=== PATIENT | female | born 1935 | race Caucasian/White ===

== ENCOUNTER → 2017-08-04 | Outpatient (CLI) | payer MEDICARE ==
--- NOTE | 2017-08-05 11:28 | Diagnostic Imaging Report ---
EXAMINATION: MRI of the lumbar spine without contrast HISTORY: Chronic low back pain radiating to the right COMPARISON: None. TECHNIQUE: Sagittal T1, T2, STIR; axial T2 and proton density. FINDINGS: It is assumed that there are 5 lumbar vertebrae. Curvature/Alignment: Normal lordosis. Vertebrae: No evidence of recent fracture, infection, or neoplasm. Chronic endplate degenerative changes from L2 to S1. Conus: Normal, terminating at T12-L1 Cauda equina: Unremarkable. Lower thoracic: Unremarkable. Paraspinal soft tissues: Severe atrophy of the paraspinal muscles in the lumbosacral junction. . Partially visualized T2 hyperintense probable cyst in the right kidney Degenerative changes: Decreased disc height and T2 signal intensity as well as symmetric disc bulge and marginal endplate osteophytes from L2-L3 to L5-S1. L1-L2: Mild symmetric disc bulge without canal or foraminal stenoses L2-L3: Spondylosis and facet arthrosis L3-L4: Spondylosis and facet arthrosis. Moderate right foraminal stenoses. Minimal displacement of the exiting right L3 nerve root. L4-L5: Spondylosis and facet arthrosis. Mild left foraminal stenosis, minimal displacement upon the exiting left L4 nerve root. L5-S1: Spondylosis and facet arthrosis. Mild narrowing of the lateral recesses and foramina, no evidence of nerve root compression. IMPRESSION: 1. Moderate degenerative foraminal stenosis on the right at L3-4 and mild on the left at L4-5 as well as bilaterally at L5-S1 without definite nerve root compression. 2. Multilevel spondylosis without canal stenosis. Signed by: Dr. Jacqueline Corona M.D. on 08/05/2017 11:25 AM
== END ==
LOC: MRI 16:03
PROVIDERS: ATTEND Anesthesiology
DX: M54.17 Radiculopathy, lumbosacral region (principal); M47.817 Spondylosis without myelopathy or radiculopathy, lumbosacral region
CPT/HCPCS: 72148